=== PATIENT | female | born 1975 | race Caucasian/White ===

== ENCOUNTER 2017-09-23 07:47 | Emergency (ER) | payer OTHER ==
[~2017-09-23] VITALS: Ht 154.9 cm; Wt 75.0 kg
[2017-09-23 08:43] VITALS: BP 147/89
== END 2017-09-23 09:05 | disposition home or self-care (01) ==
LOC: EMS 07:48
DX: R00.2 Palpitations (principal); F15.10 Other stimulant abuse, uncomplicated; M79.89 Other specified soft tissue disorders; L29.9 Pruritus, unspecified; F41.9 Anxiety disorder, unspecified; F17.210 Nicotine dependence, cigarettes, uncomplicated; I10 Essential (primary) hypertension; E03.9 Hypothyroidism, unspecified
CPT/HCPCS: 93005; 96372; 99283; 99406